=== PATIENT | female | born 1970 | race Caucasian/White ===

== ENCOUNTER → 2018-06-22 | Outpatient (CLI) | payer BC ==
[~2018-06-22] MED LIST: DESO60CR2 TP; FLUO15CR TP; MELO15TA23 PO; OMEP40CA5 PO; PHEN37.53 PO; TRAM50TA PO
--- NOTE | 2018-06-22 16:10 | KCIC ---
MRI Thoracic Spine without contrast History: Thoracic back pain, right-sided flank pain to the right breast, previous fall 1 month ago Technique: Multiplanar, multi sequential noncontrast MR imaging was performed of the thoracic spine. Contrast: None Comparison: None Findings: There is some motion degradation. Thoracic cord caliber is within normal limits without significant focal signal abnormality. Thoracic vertebral body stature and AP alignment are within normal limits. There is multilevel [id number] degenerative disc disease greatest at T6-T7 and T7-8, to lesser degree at T3-4 to T5-T6, T8-T9, T9-10. There is no significant marrow edema. There are multilevel shallow posterior bulges/protrusions such as T2-3, T4-5, T5-T6, T6-7, T7-8, T8-9, T9-10. Findings are greatest at T6-7 and T7-8 at which there are likely associated minimal disc osteophyte complexes. There is no significant thoracic spinal stenosis. Facet degenerative change contributes to mild posterior neural foramina compromise bilaterally at T8-T9 and on the left at T7-T8. There is a T2 hyperintense lesion of the visualized right lobe of the liver 1.2 cm otherwise difficult to characterize. As seen on localizer, there is multilevel cervical degenerative disc disease, multilevel spondylosis and disc osteophyte complexes and bulges, likely at least mild spinal stenosis. Impression: 1. There is multilevel thoracic degenerative disc disease and mild spondylosis, multilevel shallow posterior bulges/protrusions without significant thoracic spinal stenosis. There is mild neural foramina compromise bilaterally at T8-9 and on the left at T7-8 due to facet degenerative change. 2. There is multilevel cervical degenerative disc disease and spondylosis, likely at least mild spinal stenosis. 3. There is a T2 hyperintense lesion of the visualized right lobe of the liver 1.2 cm otherwise difficult to characterize. Electronically signed by: Sandeep Gant MD (06/22/2018 4:07 PM) [email or web address]
== END | disposition home or self-care (01) ==
LOC: KCIC MRI 13:48
PROVIDERS: ATTEND Nurse Practitioner Family
DX: M51.34 Other intervertebral disc degeneration, thoracic region (principal); M47.894 Other spondylosis, thoracic region; M50.30 Other cervical disc degeneration, unspecified cervical region; M25.78 Osteophyte, vertebrae; K76.89 Other specified diseases of liver
CPT/HCPCS: 72146

== ENCOUNTER → 2018-07-04 | Outpatient (CLI) | payer BC ==
[~2018-07-04] MED LIST changes: +IOHEXOL 240 MG/ML 50ML VIAL. PO ONE; +IOHEXOL 300 MG/ML 100ML VIAL. IV ONE
--- NOTE | 2018-07-04 11:15 | KCIC ---
PQRS Compliance statement: One or more of the following individualized dose reduction techniques were utilized for this examination: 1. Automated exposure control. 2. Adjustment of the mA and/or kV according to patient size. 3. Use of iterative reconstruction technique. Indication:Liver lesion seen on most recent MRI. TECHNIQUE: CT abdomen without and with IV contrast with multiplanar reformats. COMPARISON: MRI of thoracic spine from 06/22/2018. FINDINGS: Heart is normal in size. No pericardial or pleural effusion. Clear lung bases. Liver is normal in morphology. There is a small and has seen focus measuring 9 mm that corresponds to abnormality seen on MRI in segment 8 of the liver (series 3 image 35). No other liver lesions seen. Spleen is not enlarged and show no focal lesion. Status post cholecystectomy. Pancreas within normal limits without peripancreatic inflammatory changes or focal pancreatic lesion. Adrenal glands show no focal mass. No nephrolithiasis or hydronephrosis. No suspicious renal lesion. No enlarged retroperitoneal adenopathy. Visualized bowel within normal limits. Normal appendix. Mild descending colon diverticulosis. Fat-containing supraumbilical midline abdominal wall hernia seen, the largest in the epigastric region measures approximately 4.0 x 2.3 cm (series 3 image 44). There is suggestion of diffuse hepatic steatosis. No suspicious bony lesion. IMPRESSION: 1. Abnormality seen in the liver on MRI most likely a small flash filling hemangioma. 2. Mild hepatic steatosis. 3. Partially visualized mild diverticulosis of the descending colon. Electronically signed by: Liang Hodges DO (07/04/2018 11:12 AM) [id number]
== END | disposition home or self-care (01) ==
LOC: KCIC CT 08:39
PROVIDERS: ATTEND Nurse Practitioner Family
DX: K76.0 Fatty (change of) liver, not elsewhere classified (principal); K57.30 Diverticulosis of large intestine without perforation or abscess without bleeding; Z90.49 Acquired absence of other specified parts of digestive tract; Z87.891 Personal history of nicotine dependence
CPT/HCPCS: 74170; Q9966; Q9967

== ENCOUNTER → 2019-08-23 | Outpatient (CLI) | payer BC ==
[~2019-08-23] MED LIST changes: +ALPR0.25 PO; +CYCL10TA2 PO; +ESCITALOPRAM OXA5 MG PO; +IOHEXOL 180 MG/ML 10 ML VIAL. ONE; -IOHEXOL 240 MG/ML 50ML VIAL. PO ONE; -IOHEXOL 300 MG/ML 100ML VIAL. IV ONE; +OMEP40CA45 PO; -OMEP40CA5 PO; +methylPREDNISolone ACETATE 40 MG/ML VIAL. ONE; +methylPREDNISolone ACETATE 80 MG/ML VIAL. ONE
--- NOTE | 2019-08-23 15:01 | PAIN ---
DATE OF SERVICE: 08/23/2019 INITIAL CONSULTATION FOR PAIN CLINIC CHIEF COMPLAINT: Mid and low back pain. HISTORY OF PRESENT ILLNESS: This is a 49-year-old female who presents with history of pain in the mid back, low back as well since about 2014, treated in the past with physical therapy, exercise and epidural steroid injections. The patient has done well with each of these, most recently had injections in November of this year in the thoracic and lumbar spine with good results about 75% improvement lasting several months. The patient reports the pain has returned now. She had been seen at an outside pain clinic, which was too far from home for her to travel and is wishing to relocate to more proximal location to her home and she presents today for evaluation and treatment. The patient reports the pain is in the mid back, upper back, low back, slightly more on the right than the left, some on the right shoulder as well. The patient reports the pain in the mid back and low back is sharp, constant, stabbing, throbbing, shooting, radiating at times into the hips and legs, more on the left side, changes during the day, worse with activity, standing, walking, changing positions, better with sitting or lying down, does awaken her from sleep at least once or twice at night. The patient reports it does not affect her bowel or bladder control or ability to walk. She has again had physical therapy as recently as 2017, trigger-point injections, epidural injections in November of 2018, chiropractic treatment in the past and is currently doing exercises on her own. The patient rates her disability rating from 0-10, 10 being the worst, is a 7 with family home responsibilities and occupation, 8 with recreation, 4 with social activity and sexual behavior, 0 with self-care and 3-7 with life support activities, depending on the day. The patient has tried Flexeril as well as tramadol, both of these do ease the pain by about 20%-30%. The patient did have an MRI scan of the thoracic spine and lumbar spine, thoracic spine showing multilevel thoracic degenerative disk disease, mild spondylosis, mild neural foraminal compromise bilaterally at T8-T9, on the left at T7-T8; lumbar spine showing some mild disk osteophyte complex at the L5-S1 level, mild degenerative changes. No significant disk bulge or protrusion throughout with 0.3 cm synovial cyst at the L4-L5 to the left facet joints. PAST MEDICAL HISTORY: Significant for arthritis, cigarette smoking. PREVIOUS SURGERY: Include tubal ligation, cholecystectomy, NovaSure, and partial hysterectomy. CURRENT MEDICATIONS: Include tramadol, Lexapro, cyclobenzaprine, and Xanax. ALLERGIES: The patient has no known drug allergies. FAMILY HISTORY: Significant for colon cancer, breast cancer, heart disease, high blood pressure. SOCIAL HISTORY: The patient drinks about 2-3 alcoholic drinks a week on average, uses electronic cigarettes, has smoked for about 12 years prior to that with tobacco cigarettes. She is and lives with her spouse and lives locally in [place], [place]. REVIEW OF SYSTEMS: The patient's review of systems is positive for those items mentioned in history of present illness. All systems reviewed and otherwise negative. It is complete, full, and well documented on the patient's chart. PHYSICAL EXAMINATION: VITAL SIGNS: The patient's blood pressure is 158/104, pulse 84, respirations 18, temperature 97.9 degrees Fahrenheit, height is 5 feet 8 inches, and weight is 214 pounds. GENERAL: The patient is awake, alert, oriented, appropriate, very pleasant demeanor. HEENT: Shows normocephalic, atraumatic. Extraocular movements are intact and symmetrical. Oral cavity: Mucous membranes moist and pink. Dentition is intact. NECK: Shows anterior throat supple without palpable lymphadenopathy noted. Swallow reflex symmetrical. CHEST: Shows normal on inspection. Breath sounds are clear bilaterally. HEART: Shows S1, S2 clear. ABDOMEN: Obese, soft, nontender, nondistended. BACK: Shows spine grossly in the midline, normal-appearing cervical lordotic curvature, thoracic kyphotic curvature and lumbar lordotic curvature with palpation of the cervical paraspinous musculature is supple without significant tenderness. Thoracic paraspinous muscle shows some moderate tenderness in the middle aspect of the thoracic spine, more on the right than the left, but without specific trigger points or radiation. The patient has good rotational motion of the thoracic spine, both laterally as well as extension and flexion. Lumbar spine shows moderate tenderness only in the inferior aspect of the paraspinous musculature, which are symmetrical on inspection. No radiation is demonstrated. The patient shows good rotation of the lumbar spine, both laterally greater than 10 degrees right and left as well as extension and forward flexion without significant difficulty. EXTREMITIES: The patient's lower extremities show deep tendon reflexes 2+ in the patellar, 1+ tendo-calcaneus tendons. Motor exam is strong with 5/5 dorsiflexion, extension, quadriceps and hamstring flexion symmetrical. Peripheral pulses are 1+ posterior tibia. No peripheral edema is noted bilaterally. Lower extremities are warm and dry to the touch, equal in color and appearance. Gaenslen's and Conor's maneuvers are negative bilaterally as is straight leg raise, which is negative for reproduction of radicular symptoms bilaterally as well. The patient is able to stand, stand on her toes without difficulty or loss of balance, walks with normal-appearing gait, does not appear to favor the right or left lower extremity significantly, not using any assistive devices. SKIN: The patient's skin shows warm and dry, good turgor. No sores, but does have some psoriasis on the elbows bilaterally. No bruising or other abnormalities throughout. IMPRESSION: 1. This is a 49-year-old female with approximate 5-year history of low back and mid back pain, responding well with therapies in the past and interventional techniques. The patient would like to pursue interventional techniques again. 2. Cigarette smoking. 3. Arthritis. PLAN: Options were discussed with the patient and we will proceed with thoracic epidural steroid injection today. She has done well with these in the past. Risks were again discussed including, but not limited to bleeding, infection, possibility of epidural hematoma, subsequent neurological compromise, dural puncture, headaches, spinal cord and/or nerve damage, side effects of steroid medication and poor results regarding pain control. The patient understands and wished to proceed. The patient will return to clinic in approximately 2 weeks for followup. She was counseled on return appointment, activity level and side effects to be aware of. DIAGNOSES: Thoracic radiculopathy with thoracic degenerative disk disease. PROCEDURE: Thoracic epidural steroid injection, translaminar approach, T7-T8 level using C-arm fluoroscopic guidance under sterile prep and drape using local anesthetic. MEDICATION INJECTED: A total of 120 mg Depo-Medrol plus 10 mL of preservative-free normal saline and 2 mL of contrast. CONDITION AT DISCHARGE: Stable. The patient tolerated the procedure well, had no complications. JORI ANDRADE MD DR: CHELSY/jennifer JOB#: [id number] / [id number] BECKI [place] APRN
== END ==
LOC: PNCL 08:10
PROVIDERS: ATTEND Anesthesiology
DX: M51.14 Intervertebral disc disorders with radiculopathy, thoracic region (principal); Z98.51 Tubal ligation status; Z90.49 Acquired absence of other specified parts of digestive tract; Z90.710 Acquired absence of both cervix and uterus; Z72.89 Other problems related to lifestyle; Z87.891 Personal history of nicotine dependence
CPT/HCPCS: 62321; J1030; J1040; Q9965

== ENCOUNTER → 2019-09-14 | Outpatient (CLI) | payer BC ==
--- NOTE | 2019-09-14 10:13 | PAIN ---
DATE OF SERVICE: 09/14/2019 PROGRESS NOTE FOR PAIN CLINIC DIAGNOSES: 1. Lumbar radiculopathy with lumbar degenerative disk disease. 2. Thoracic radiculopathy with thoracic degenerative disk disease. HISTORY OF PRESENT ILLNESS: The patient is a 49-year-old female, who returns for followup status post thoracic epidural steroid injection x 1. The patient reports about 75% improvement in the mid upper back, but her main complaint today is her low back. She is having some difficulty with this on her last visit, but the thoracic spine was much more painful and now is doing much better. She is increasing her activity with greater distance walking, doing work activities, able to do work at the computer. It is not hurting as much as it was and she is sleeping better with it, although she does not sleep well, but not secondary to the pain. The patient reports the pain now is across the low back and into the right lower extremity, posterior gluteus, posterolateral thigh, posterior hip and calf. The patient reports it is a 9 on a scale of 10 at its worst in the past week, 7 on average, 4 at its least. The patient reports it is a 4 today. The patient reports it is aching, sharp, shooting, stabbing, burning, constant at times, unbearable at times in the low back, off and on in intensity, but always present. The patient reports it is worse with being up and around, walking, standing, changing positions, better with sitting or lying down and stretching. The patient reports no new motor or sensory deficits. No new bowel or bladder incontinence. PHYSICAL EXAMINATION: VITAL SIGNS: Blood pressure 141/103, pulse 105, respirations 16, temperature is 98.3 degrees Fahrenheit, weight is 211 pounds. GENERAL: The patient is awake, alert, oriented, appropriate, very pleasant demeanor. HEENT: Head shows normocephalic, atraumatic. Extraocular movements are intact and symmetrical. Oral cavity: Mucous membranes are moist and pink. Dentition is intact. NECK: Shows anterior throat supple without palpable lymphadenopathy noted. Swallow reflex symmetrical. CHEST: Shows normal on inspection. Breath sounds are clear bilaterally. HEART: Shows S1, S2 clear. No murmurs auscultated. ABDOMEN: Soft, nontender, nondistended. BACK: Shows spine grossly in the midline. Normal-appearing thoracic kyphosis and minor flattening of lumbar lordotic curvature. Thoracic paraspinous muscle shows symmetrical on inspection and palpation shows some very mild tenderness bilaterally in the middle distribution with thoracic distribution, paraspinous muscles, but without radiation. The patient has good rotational motion of the thoracic spine, both laterally as well as extension and flexion without difficulty. Lumbar spine shows symmetrical on inspection, with palpation shows some mild tenderness in the low lumbar distribution bilaterally, again right equal to left, without asymmetry, without atrophy, hypertrophy, no trigger points, no radiation of pain. The patient has good rotational motion of the lumbar spine as well, both laterally as well as extension and flexion without significant increase in pain. No tenderness over the spinous processes, sacrum or sacroiliac regions. EXTREMITIES: Lower extremities show deep tendon reflexes at 2+ in the patellar, 1+ tendo-calcaneus tendons. Motor exam is 5/5 with dorsiflexion, extension, quadriceps and hamstring flexion symmetrical. Peripheral pulses are 2+. No peripheral edema is noted bilaterally. Options were discussed with the patient. The patient's old chart was reviewed as her current medication regimen updated. Current review of systems updated today as well and we will proceed with a lumbar epidural steroid injection with fluoroscopic guidance. Risks were again discussed, including but not limited to bleeding, infection, possibility of epidural hematoma and subsequent neurological compromise, dural puncture, headaches, spinal cord and/or nerve damage, side effects of steroid medication and poor results regarding pain control. The patient understands and wished to proceed. The patient will return to the clinic in approximately 2 weeks for followup. She was counseled on return appointment, activity level and side effects to be aware of. DIAGNOSES: Lumbar radiculopathy with lumbar degenerative disk disease. PROCEDURE: Lumbar epidural steroid injection, translaminar approach at L5-S1 level using C-arm fluoroscopic guidance under sterile prep and drape using local anesthetic. MEDICATION INJECTED: A total of 120 mg Depo-Medrol plus 10 mL of preservative-free normal saline and 2 mL of contrast. CONDITION AT DISCHARGE: Stable. The patient tolerated procedure well, had no complications. JORI ANDRADE MD DR: CHELSY/jennifer JOB#: [id number] / [id number]
== END ==
LOC: PNCL 08:49
PROVIDERS: ATTEND Anesthesiology
DX: M51.16 Intervertebral disc disorders with radiculopathy, lumbar region (principal); M51.14 Intervertebral disc disorders with radiculopathy, thoracic region
CPT/HCPCS: 62323; J1030; J1040; Q9965

== ENCOUNTER → 2019-09-25 | Outpatient (CLI) | payer BC ==
[~2019-09-25] MED LIST changes: -IOHEXOL 180 MG/ML 10 ML VIAL. ONE; -methylPREDNISolone ACETATE 40 MG/ML VIAL. ONE; -methylPREDNISolone ACETATE 80 MG/ML VIAL. ONE
--- NOTE | 2019-09-25 17:22 | KCIC ---
BRAIN W/O CONTRAST History: Chronic daily headache. Technique: Multiplanar, multi sequential MR imaging was performed of the brain without contrast. Comparison: None Findings: No acute infarct. No intracranial hemorrhage. No mass effect. No hydrocephalus. Extra-axial spaces are unremarkable. Imaged orbits are unremarkable. Imaged paranasal sinuses and mastoid air cells are clear. Impression: 1. No acute intracranial abnormality. Electronically signed by: Minh Radford DO (09/25/2019 5:19 PM) [id number]
== END | disposition home or self-care (01) ==
LOC: KCIC MRI 10:56
PROVIDERS: ATTEND Psychiatry & Neurology Neurology with Special Qualifications in Child Neurology
DX: G44.40 Drug-induced headache, not elsewhere classified, not intractable (principal); G43.719 Chronic migraine without aura, intractable, without status migrainosus
CPT/HCPCS: 70551